=== PATIENT | female | born 1995 | race American Indian/Alaskan Native ===

== ENCOUNTER 2018-01-25 20:51 | Emergency (ER) | payer BC ==
[2018-01-25 21:55] LABS: HCG Qualitative,Urine Negative (Negative)
[2018-01-25 21:58] LABS: Bilirubin,Urine NEG (Negative); Blood,Urine NEG (Negative); Color,Urine Amber (Yellow); Mucus,Urine 3+ /HPF
[2018-01-25 21:59] LABS: Basophils # (Auto) 0.1 K/mm3 (0.0-0.1); Basophils % (Auto) 1.2 % (0.0-1.8); Eosinophils # (Auto) 0.1 K/mm3 (0.0-0.4); Eosinophils % (Auto) 1.5 % (0.0-4.3); Hematocrit 40.8 % (30.3-42.9); Lymphocytes # (Auto) 1.1 K/mm3 (1.2-5.4); Lymphocytes % (Auto) 20.7 % (13.4-35.0); Mean Corpuscular HGB Conc 32 % (30-34); Mean Corpuscular Volume 71 fl (79-97); Monocytes # (Auto) 0.6 K/mm3 (0.0-0.8); Monocytes % (Auto) 10.6 % (0.0-7.3); Platelet Count 316 K/mm3 (140-440); Red Blood Count 5.74 M/mm3 (3.65-5.03); Red Cell Distribution Width 14.8 % (13.2-15.2)
[2018-01-25 22:00] LABS: Mean Corpuscular Hemoglobin 23 pg (28-32)
[2018-01-25 22:20] LABS: Alanine Aminotransferase 12 units/L (7-56); Albumin 4.6 g/dL (3.9-5); BUN/Creatinine Ratio 14; Blood Urea Nitrogen 10 mg/dL (7-17); Calcium 9.7 mg/dL (8.4-10.2); Hemolysis Index 1; Lipase 15 units/L (13-60)
[2018-01-26] MEDS ORDERED: ZOFRAN IV ONE ×2 (00:43→03:19)
[2018-01-26] MEDS ORDERED: D5NS 1,000 ML IV SCH ×2 (01:00→04:00)
[2018-01-26 01:07] VITALS: BP 128/62
[2018-01-26] MEDS ORDERED: PEPCID IV ONE (01:08)
[2018-01-26] MEDS ORDERED: MORPHINE IV ONE (01:08)
--- NOTE | 2018-01-26 02:05 | Emergency Department Report ---
ED Abdominal Pain HPI - General Chief Complaint: Abdominal Pain Stated Complaint: GASTRIC STOMACH VIRUSABNORMAL THYROID Time Seen by Provider: 01/26/18 00:41 Source: patient Mode of arrival: Ambulatory Limitations: No Limitations - History of Present Illness Initial Comments: 22-year-old female with past medical history of recently diagnosed thyroid disease and no previous abdominal surgeries presents to the Hospital complaining of abdominal pain, nausea, vomiting, and feeling tired 2 days. Pain is generalized, intermittent, described as a tightness, rated at 9/10 in intensity. Pain is worse With palpation. Yesterday patient could not tolerate any by mouth intake and now today she is tolerating water. She vomited a little blood yesterday but this has since resolved. No complaints of dysuria, fever, or diarrhea. Patient states this summer she was told her thyroid function was abnormal however, he is scheduled to follow up is February 01 for further diagnosis and medication initiation Severity scale (0 -10): 7 - Related Data Previous Rx's Medication Instructions Recorded Last Taken Type Famotidine [Pepcid] 20 mg PO BID #30 tablet 01/26/18 Unknown Rx Promethazine [Phenergan TAB] 25 mg PO Q8HR PRN #30 tab 01/26/18 Unknown Rx Allergies Allergy/AdvReac Type Severity Reaction Status Date / Time No Known Allergies Allergy Unverified 01/25/18 21:14 ED Review of Systems ROS: Stated complaint: GASTRIC STOMACH VIRUSABNORMAL THYROID Other details as noted in HPI Comment: All other systems reviewed and negative ED Past Medical Hx - Past Medical History Previous Medical History?: Yes Additional medical history: hyperthyrodism - Surgical History Past Surgical History?: No - Social History Smoking Status: Never Smoker Substance Use Type: None - Medications Home Medications: Home Medications Medication Instructions Recorded Confirmed Last Taken Type Famotidine [Pepcid] 20 mg PO BID #30 tablet 01/26/18 Unknown Rx Promethazine [Phenergan TAB] 25 mg PO Q8HR PRN #30 tab 01/26/18 Unknown Rx ED Physical Exam - General Limitations: No Limitations - Other Other exam information: General: No limitations, patient is alert in no acute distress Head exam: Atraumatic, normocephalic Eyes exam: Normal appearance, nonicteric sclerae ENT: Moist mucous membrane, normal oropharynx Neck exam: Normal inspection, full range of motion, no meningismus nontender Respiratory exam: Clear to auscultation bilateral, no wheezes, rales, crackles Cardiovascular: Normal rate and rhythm, normal heart sounds Abdomen: Soft, nondistended, upper abdominal tenderness, with normal bowel sounds, no rebound, or guarding Extremity: Full range of motion normal inspection no deformity Back: Normal Inspection, full range of motion, no tenderness Neurologic: Alert, oriented x3, cranial nerves intact, no motor or sensory deficit Psychiatric: normal affect, normal mood Skin: Warm, dry, intact ED Course Vital Signs 01/25/18 01/26/18 01/26/18 21:11 01:06 01:07 Temperature 98.6 F Pulse Rate 72 82 Respiratory 17 18 18 Rate Blood Pressure 128/62 [Left] O2 Sat by Pulse 99 100 100 Oximetry ED Medical Decision Making - Lab Data Result diagrams: 01/25/18 21:40 01/25/18 21:40 Lab Results 01/25/18 01/25/18 01/25/18 Range/Units 21:36 21:40 21:40 WBC 5.4 (4.5-11.0) K/mm3 RBC 5.74 H (3.65-5.03) M/mm3 Hgb 13.0 (10.1-14.3) gm/dl Hct 40.8 (30.3-42.9) % MCV 71 L (79-97) fl MCH 23 L (28-32) pg MCHC 32 (30-34) % RDW 14.8 (13.2-15.2) % Plt Count 316 (140-440) K/mm3 Lymph % (Auto) 20.7 (13.4-35.0) % [place] % (Auto) 10.6 H (0.0-7.3) % Eos % (Auto) 1.5 (0.0-4.3) % Baso % (Auto) 1.2 (0.0-1.8) % Lymph # 1.1 L (1.2-5.4) K/mm3 [place] # 0.6 (0.0-0.8) K/mm3 Eos # 0.1 (0.0-0.4) K/mm3 Baso # 0.1 (0.0-0.1) K/mm3 Seg Neutrophils % 66.0 (40.0-70.0) % Seg Neutrophils # 3.6 (1.8-7.7) K/mm3 Sodium 138 (137-145) mmol/L Potassium 3.7 (3.6-5.0) mmol/L Chloride 101.1 (98-107) mmol/L Carbon Dioxide 23 (22-30) mmol/L Anion Gap 18 mmol/L BUN 10 (7-17) mg/dL Creatinine 0.7 (0.7-1.2) mg/dL Estimated GFR > 60 ml/min BUN/Creatinine Ratio 14 % Glucose 87 (65-100) mg/dL Calcium 9.7 (8.4-10.2) mg/dL Total Bilirubin 0.60 (0.1-1.2) mg/dL AST 16 (5-40) units/L ALT 12 (7-56) units/L Alkaline Phosphatase 83 (35-129) units/L Total Protein 8.3 H (6.3-8.2) g/dL Albumin 4.6 (3.9-5) g/dL Albumin/Globulin Ratio 1.2 % Lipase 15 (13-60) units/L Urine Color Bee (Yellow) Urine Turbidity Cloudy (Clear) Urine pH 5.0 (5.0-7.0) Ur Specific [place] 1.040 H (1.003-1.030) Urine Protein 100 mg/dl (Negative) mg/dL Urine Glucose (UA) Neg (Negative) mg/dL Urine Ketones 80 (Negative) mg/dL Urine Blood Neg (Negative) Urine Nitrite Neg (Negative) Ur Reducing Substances Not Reportable Urine Bilirubin Neg (Negative) Urine Ictotest Not Reportable Urine Urobilinogen 4.0 (<2.0) mg/dL Ur Leukocyte Esterase Neg (Negative) Urine WBC (Auto) 8.0 H (0.0-6.0) /HPF Urine RBC (Auto) 8.0 (0.0-6.0) /HPF U Epithel Cells (Auto) 33.0 H (0-13.0) /HPF Urine Mucus 3+ /HPF Urine HCG, Qual Negative (Negative) - Medical Decision Making Gastritis Nausea and vomiting with epigastric discomfort Labs unremarkable Urine shows high epithelia cells with slightly elevated WBCs suggestive of a contaminated sample. Patient does not have urinary symptoms and therefore will be treated for UTI at this time Patient received D NS 2 L for significant dehydration as indicated by ketosis and high specific gravity on urine Patient symptoms improved with Zofran and Phenergan. Tolerating by mouth prior to discharge - Differential Diagnosis gastroenteritis, hepatitis, PUD, viral syndrome, , UTI Critical Care Time: No Critical care attestation.: If time is entered above; I have spent that time in minutes in the direct care of this critically ill patient, excluding procedure time. ED Disposition Clinical Impression: Gastritis, Vomiting Disposition: TO HOME OR SELFCARE Is pt being admited?: No Does the pt Need Aspirin: No Condition: Stable Instructions: Acute Nausea and Vomiting (ED), Gastritis (ED) Additional Instructions: Take the medication as prescribed. Follow up with your doctor or the docto/ clinic r provided. Return if symptoms worsen as indicated by your discharge instructions Prescriptions: Famotidine [Pepcid] 20 mg PO BID #30 tablet Promethazine [Phenergan TAB] 25 mg PO Q8HR PRN #30 tab PRN Reason: Nausea Referrals: PRIMARY MD MICHELLE [Primary Care Provider] - 3-[address] [facility] [Provider Group] - 3-5 Days JYOTI CORLEY MD [Staff Physician] - 3-5 Days Time of Disposition: 04:40
[2018-01-26] MEDS ORDERED: PHENERGAN PR ONE (03:19)
[2018-01-26] MEDS ORDERED: ZOFRAN ONE (03:22)
== END 2018-01-26 05:11 | disposition home or self-care (01) ==
LOC: ED 20:51
DX: K29.70 Gastritis, unspecified, without bleeding (principal); E05.90 Thyrotoxicosis, unspecified without thyrotoxic crisis or storm
CPT/HCPCS: 36415; 80053; 81001; 81025; 83690; 85025; 96361; 96374; 96375; 96376; 99283; J2270; J2405; J7042